=== PATIENT | male | born 1940 | race Caucasian/White ===

== ENCOUNTER 2016-06-27 09:48 | Observation (INO) | payer MEDICARE ==
[2016-06-27 11:07] LABS: RED BLOOD COUNT 5.22 M/UL (4.20-5.50); WHITE BLOOD COUNT 11.2 K/UL (4.5-11.0)
[2016-06-27 11:24] LABS: BUN/CREATININE RATIO 21 (0-10)
[2016-06-27] MEDS ORDERED: INVOKANA100 MG PO (22:55)
[2016-06-27] MEDS ORDERED: JANUVIA100 MG PO (22:56)
[2016-06-27] MEDS ORDERED: PLETAL 100 MG100 MG PO (22:56)
[2016-06-27] MEDS ORDERED: PLAVIX 75 MG TA75 MG PO (22:56)
[2016-06-27] MEDS ORDERED: ESCITALOPRAM OX10 MG PO (22:57)
[2016-06-27] MEDS ORDERED: AMARYL4 MG PO (22:57)
[2016-06-27] MEDS ORDERED: ISOSORBIDE MONO30 MG PO (22:58)
[2016-06-27] MEDS ORDERED: LOVASTATIN40 MG PO (22:59)
[2016-06-27] MEDS ORDERED: LOPRESSOR100 MG PO (22:59)
[2016-06-27] MEDS ORDERED: SEROQUEL TAB 2525 MG PO (23:00)
[2016-06-27] MEDS ORDERED: ASPIRIN EC325 MG PO (23:00)
[2016-06-27] MEDS ORDERED: ALTACE5 MG PO (23:01)
[2016-06-27] MEDS ORDERED: ZANTAC 150 MG150 MG PO (23:01)
[2016-06-28 05:14] LABS: HEMOGLOBIN 14.2 gm/dl (14.0-17.5); RED BLOOD COUNT 4.92 M/UL (4.20-5.50); WHITE BLOOD COUNT 8.6 K/UL (4.5-11.0)
[2016-06-28 05:42] LABS: BUN/CREATININE RATIO 22 (0-10)
[2016-06-28] MEDS ORDERED: AUGMENTIN TAB875 MG PO (16:50)
[2016-06-28] MEDS ORDERED: TAMIFLU 75 MG C75 MG PO (16:50)
== END 2016-06-28 17:30 | disposition home or self-care (01) ==
LOC: ER1 09:48 → ZEROF 14:49 → MED SURG 4 17:33
PROVIDERS: Emergency Medicine; ADMIT Hospitalist
DX: J32.9 Chronic sinusitis, unspecified (principal); J10.1 Influenza due to other identified influenza virus with other respiratory manifestations; E11.9 Type 2 diabetes mellitus without complications; I25.10 Atherosclerotic heart disease of native coronary artery without angina pectoris; I11.9 Hypertensive heart disease without heart failure; I51.9 Heart disease, unspecified; J40 Bronchitis, not specified as acute or chronic; E78.5 Hyperlipidemia, unspecified; Z95.1 Presence of aortocoronary bypass graft; Z79.02 Long term (current) use of antithrombotics/antiplatelets; Z79.82 Long term (current) use of aspirin; Z79.899 Other long term (current) drug therapy; Z82.49 Family history of ischemic heart disease and other diseases of the circulatory system; Z87.09 Personal history of other diseases of the respiratory system; I47.1 Supraventricular tachycardia
CPT/HCPCS: 36415; 36600; 70450; 71010; 80048; 80053; 82550; 82553; 82803; 82962; 83880; 84484; 85025; 87040; 87081; 87880; 93005; 94640; 94664; 96374; 99285; G0378; J0696; J7050

== ENCOUNTER → 2020-07-25 | Outpatient (CLI) | payer MEDICARE ==
[~2020-07-25] MED LIST: ALTACE CAP 5MG5 MG PO; ALTACE10 MG PO; ALTACE5 MG PO; ALTOPREV40 MG PO; AMARYL4 MG PO; AMLODIPINE BESYL5 MG PO; ANTIVERT 25MG T25 MG PO; ASPIR 8181 MG PO; ASPIRIN EC325 MG PO; ASPIRIN81 MG PO; AUGMENTIN 875-1 EACH PO; AUGMENTIN TAB875 MG PO; BRILINTA 90 MG90 MG PO; BRILINTA90 MG PO; CYANOCOBAL1000 MCG/1 IM; CYANOCOBAL1000 MCG/1 INJ; DULCOLAX10 MG PR; ESCITALOPRAM OX10 MG PO; FARXIGA5 MG PO; GLUCOPHAGE1000 MG PO; IMDUR ER TAB 3030 MG PO; INVOKANA100 MG PO; ISOSORBIDE MONO30 MG PO; ISOSORBIDE MONO60 MG PO; JANUVIA100 MG PO; LOPRESSOR 25 MG25 MG PO; LOPRESSOR100 MG PO; LOVASTATIN40 MG PO; METFORMIN HCL1000 M1 PO; METOPROLOL TART25 MG PO; MIRALAX17 GM PO; NITROSTAT 0.40.4 MG SL; NITROSTAT0.4 MG SL; PAIN RELIEF650 MG PO; PLAVIX 75 MG TA75 MG PO; PLETAL 100 MG100 MG PO; RANITIDINE HCL150 MG PO; SEROQUEL TAB 2525 MG PO; TAMIFLU 75 MG C75 MG PO; TYLENOL 500 MG500 MG PO; ZANTAC 150 MG150 MG PO; [UNRECOGNIZED DRUG - SUPPLY] MC
== END ==
LOC: HEART 5 09:59
DX: I20.9 Angina pectoris, unspecified (principal); I07.1 Rheumatic tricuspid insufficiency
CPT/HCPCS: 93306

== ENCOUNTER → 2020-09-18 | Outpatient (CLI) | payer MEDICARE | LOC: HEART 5 07:45 | DX: I20.9 Angina pectoris, unspecified (principal) | CPT/HCPCS: 78452; A9502; J2785 ==

== ENCOUNTER 2020-12-31 19:00 | Emergency (ER) | payer MEDICARE ==
[2020-12-31 19:49] LABS: HEMOGLOBIN 13.2 gm/dl (14.0-17.5); RED BLOOD COUNT 4.54 M/UL (4.20-5.50); WHITE BLOOD COUNT 10.1 K/UL (4.5-11.0)
[2020-12-31 20:20] LABS: BUN/CREATININE RATIO 25 (0-10)
== END 2021-01-01 15:53 | disposition home or self-care (01) ==
LOC: ER1 19:00
PROVIDERS: Emergency Medicine
DX: R41.81 Age-related cognitive decline (principal); F32.2 Major depressive disorder, single episode, severe without psychotic features; I25.10 Atherosclerotic heart disease of native coronary artery without angina pectoris; Z20.822 Contact with and (suspected) exposure to COVID-19; E11.9 Type 2 diabetes mellitus without complications; I10 Essential (primary) hypertension; Z86.73 Personal history of transient ischemic attack (TIA), and cerebral infarction without residual deficits; Z95.1 Presence of aortocoronary bypass graft
CPT/HCPCS: 70450; 71045; 80053; 81001; 82550; 82553; 82962; 83605; 83735; 83874; 83880; 84100; 84484; 85025; 85610; 85730; 87086; 93005; 97162; 97530; 99285; J7030; U0002

== ENCOUNTER → 2021-02-15 | Outpatient (CLI) | payer MEDICARE ==
[2021-02-15 10:39] LABS: HEMOGLOBIN 12.4 gm/dl (14.0-17.5); RED BLOOD COUNT 4.07 M/UL (4.20-5.50); WHITE BLOOD COUNT 9.6 K/UL (4.5-11.0)
[2021-02-15 11:19] LABS: BUN/CREATININE RATIO 20 (0-10)
== END ==
LOC: LAB 09:54
PROVIDERS: Nurse Practitioner Family
DX: E78.5 Hyperlipidemia, unspecified (principal); I10 Essential (primary) hypertension; E03.9 Hypothyroidism, unspecified; E11.9 Type 2 diabetes mellitus without complications; E58 Dietary calcium deficiency; E55.9 Vitamin D deficiency, unspecified
CPT/HCPCS: 36415; 80053; 80061; 82570; 82607; 83036; 84156; 84439; 84443; 85025

== ENCOUNTER 2021-05-12 21:23 | Inpatient (IN) | payer MEDICARE, OTHER ==
[~2021-05-12] VITALS: Ht 180.3 cm; Wt 65.8 kg
[~2021-05-12 21:23] MED LIST changes: +ISORDIL PO; -ISOSORBIDE MONO60 MG PO
[2021-05-12 22:03] LABS: HEMOGLOBIN 12.8 gm/dl (14.0-17.5); RED BLOOD COUNT 4.44 M/UL (4.20-5.50)
[2021-05-12 22:26] LABS: BUN/CREATININE RATIO 20 (0-10)
[2021-05-13] MEDS ORDERED: NORVASC5 MG PO (11:59)
[2021-05-13] MEDS ORDERED: ATORVASTATIN CA40 MG PO (12:00)
[2021-05-13] MEDS ORDERED: RAMIPRIL10 MG PO (12:00)
[2021-05-13] MEDS ORDERED: BRILINTA90 MG PO (17:48)
[2021-05-14 07:13] LABS: HEMOGLOBIN 12.8 gm/dl (14.0-17.5); RED BLOOD COUNT 4.42 M/UL (4.20-5.50); WHITE BLOOD COUNT 11.6 K/UL (4.5-11.0)
[2021-05-14 07:32] LABS: BUN/CREATININE RATIO 30 (0-10)
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
== END 2021-05-14 18:00 | disposition home health service (06) | DRG 68 ==
LOC: ER1 21:23 → 3 EAST 05-13 08:24 → CDU 05-13 08:24 → 3 EAST 05-14 00:20
PROVIDERS: Physician Assistant; Student in an Organized Health Care Education/Training Program; ADMIT Internal Medicine
PROC: B24BZZZ Ultrasonography of Heart with Aorta (ICD-10-PCS; principal; 2021-05-13)
DX: I65.03 Occlusion and stenosis of bilateral vertebral arteries (principal); G45.9 Transient cerebral ischemic attack, unspecified; Z20.822 Contact with and (suspected) exposure to COVID-19; I25.10 Atherosclerotic heart disease of native coronary artery without angina pectoris; I10 Essential (primary) hypertension; D64.9 Anemia, unspecified; E11.9 Type 2 diabetes mellitus without complications; W01.0XXA Fall on same level from slipping, tripping and stumbling without subsequent striking against object, initial encounter; R27.0 Ataxia, unspecified; Z95.1 Presence of aortocoronary bypass graft; Z90.89 Acquired absence of other organs; Z87.891 Personal history of nicotine dependence; Z90.2 Acquired absence of lung [part of]; Z82.49 Family history of ischemic heart disease and other diseases of the circulatory system; Z86.73 Personal history of transient ischemic attack (TIA), and cerebral infarction without residual deficits; Z79.84 Long term (current) use of oral hypoglycemic drugs; Z79.82 Long term (current) use of aspirin; Z79.899 Other long term (current) drug therapy
CPT/HCPCS: 70450; 70496; 70498; 70551; 71045; 80048; 80053; 82550; 82553; 82962; 84484; 85025; 92610; 93005; 96372; 97110-GP-CQ; 97116-GP-CQ; 97162; 97166; 97530; 99285; G0378; J7030; Q9967; U0002

== ENCOUNTER 2021-09-28 11:48 | Inpatient (IN) | payer MEDICARE, MEDICAID ==
[~2021-09-28] VITALS: Ht 180.3 cm; Wt 65.9 kg
[~2021-09-28 11:48] MED LIST changes: +ATORVASTATIN CA40 MG PO; -METFORMIN HCL1000 M1 PO; +METFORMIN HCL500 MG PO; +NORVASC5 MG PO; +RAMIPRIL10 MG PO
[2021-09-28 13:20] LABS: HEMOGLOBIN 12.7 gm/dl (14.0-17.5); RED BLOOD COUNT 4.23 M/UL (4.20-5.50); WHITE BLOOD COUNT 9.7 K/UL (4.5-11.0)
[2021-09-28 13:52] LABS: BUN/CREATININE RATIO 29 (0-10)
[2021-09-28] MEDS ORDERED: LOVASTATIN40 MG PO (18:54)
[2021-09-28] MEDS ORDERED: CLOPIDOGREL75 MG PO (18:54)
[2021-09-28] MEDS ORDERED: AMITRIPTYLINE H10 MG PO (18:55)
[2021-09-28] MEDS ORDERED: OZEMPIC0.25 MG/0. SQ (18:55)
[2021-09-28] MEDS ORDERED: TYLENOL 8 HOUR650 MG PO (18:56)
[2021-09-28] MEDS ORDERED: BUTALB-ACETAMI1 EACH PO (18:56)
[2021-09-28] MEDS ORDERED: RANEXA1000 MG PO (18:58)
[2021-09-29 06:28] LABS: HEMOGLOBIN 12.1 gm/dl (14.0-17.5); RED BLOOD COUNT 4.06 M/UL (4.20-5.50); WHITE BLOOD COUNT 7.8 K/UL (4.5-11.0)
[2021-09-29 06:56] LABS: BUN/CREATININE RATIO 23 (0-10)
[2021-09-29 18:43] LABS: HEMOGLOBIN 11.4 gm/dl (14.0-17.5); RED BLOOD COUNT 3.76 M/UL (4.20-5.50)
[2021-09-29 19:14] LABS: BUN/CREATININE RATIO 23 (0-10)
[2021-09-30 08:05] LABS: HEMOGLOBIN 12.3 gm/dl (14.0-17.5); RED BLOOD COUNT 4.09 M/UL (4.20-5.50); WHITE BLOOD COUNT 9.3 K/UL (4.5-11.0)
[2021-09-30 08:39] LABS: BUN/CREATININE RATIO 32 (0-10)
[2021-10-01 06:26] LABS: HEMOGLOBIN 11.5 gm/dl (14.0-17.5); RED BLOOD COUNT 3.82 M/UL (4.20-5.50); WHITE BLOOD COUNT 9.8 K/UL (4.5-11.0)
[2021-10-01 06:51] LABS: BUN/CREATININE RATIO 30 (0-10)
[2021-10-02 07:18] LABS: HEMOGLOBIN 11.4 gm/dl (14.0-17.5); RED BLOOD COUNT 3.82 M/UL (4.20-5.50); WHITE BLOOD COUNT 8.5 K/UL (4.5-11.0)
[2021-10-02 07:31] LABS: BUN/CREATININE RATIO 26 (0-10)
[2021-10-04 07:06] LABS: HEMOGLOBIN 11.5 gm/dl (14.0-17.5); RED BLOOD COUNT 3.84 M/UL (4.20-5.50)
[2021-10-04 07:11] LABS: WHITE BLOOD COUNT 13.1 K/UL (4.5-11.0)
[2021-10-04 07:36] LABS: BUN/CREATININE RATIO 37 (0-10)
[2021-10-06 02:23] LABS: HEMOGLOBIN 11.1 gm/dl (14.0-17.5); RED BLOOD COUNT 3.77 M/UL (4.20-5.50); WHITE BLOOD COUNT 11.7 K/UL (4.5-11.0)
[2021-10-06 02:52] LABS: BUN/CREATININE RATIO 58 (0-10)
[2021-10-07 02:31] LABS: HEMOGLOBIN 11.4 gm/dl (14.0-17.5); RED BLOOD COUNT 3.78 M/UL (4.20-5.50); WHITE BLOOD COUNT 10.6 K/UL (4.5-11.0)
[2021-10-07 02:56] LABS: BUN/CREATININE RATIO 73 (0-10)
--- NOTE | 2021-10-08 02:29 | NUR ---
APPROX 2150 ATTEMPTED TO ADMINSTER PATIENT PO MEDICATIONS IN THICKENED LIQUIDS PT REFUSED MULTIPLE TIMES. ATTEMPTED MULTIPLE TIMES, ATTEMPTED TO REDIRECT PT WITH NO SUCCESS. ANOTHER STAFF MEMEBER ALSO ATTEMPTED PT REFUSED WELL.
[2021-10-08 06:51] LABS: HEMOGLOBIN 11.6 gm/dl (14.0-17.5); RED BLOOD COUNT 3.97 M/UL (4.20-5.50); WHITE BLOOD COUNT 9.8 K/UL (4.5-11.0)
[2021-10-08 07:19] LABS: BUN/CREATININE RATIO 55 (0-10)
[2021-10-09 06:46] LABS: HEMOGLOBIN 11.6 gm/dl (14.0-17.5); RED BLOOD COUNT 3.87 M/UL (4.20-5.50); WHITE BLOOD COUNT 8.9 K/UL (4.5-11.0)
[2021-10-09 07:00] LABS: BUN/CREATININE RATIO 46 (0-10)
[2021-10-10 07:08] LABS: BUN/CREATININE RATIO 44 (0-10)
[2021-10-13 06:53] LABS: HEMOGLOBIN 10.5 gm/dl (14.0-17.5); RED BLOOD COUNT 3.57 M/UL (4.20-5.50); WHITE BLOOD COUNT 7.4 K/UL (4.5-11.0)
[2021-10-13 14:01] LABS: BUN/CREATININE RATIO 21 (0-10)
[2021-10-14] MEDS ORDERED: POLYETHYLENE GL17 GM PO (09:52)
[2021-10-14] MEDS ORDERED: LISINOPRIL20 MG PO (09:52)
[2021-10-14] MEDS ORDERED: METHYLPHENIDATE10 M1 PO (09:52)
[2021-10-14] MEDS ORDERED: DOCUSATE SODIU100 MG PO (09:52)
[2021-10-14] MEDS ORDERED: ENOXAPARIN40 MG/0.4 SC (09:52)
[2021-10-14] MEDS ORDERED: CARVEDILOL25 MG PO (09:52)
== END 2021-10-14 15:42 | DRG 480 ==
LOC: ER1 11:48 → MED SURG 4 18:12 → CDU 18:12 → MED SURG 4 19:25
PROVIDERS: Internal Medicine; Internal Medicine Infectious Disease; Orthopaedic Surgery; Physician Assistant; ADMIT Internal Medicine
PROC: 0QS706Z Reposition Left Upper Femur with Intramedullary Internal Fixation Device, Open Approach (ICD-10-PCS; principal; 2021-09-29 17:37)
DX: S72.092A Other fracture of head and neck of left femur, initial encounter for closed fracture (principal); G93.41 Metabolic encephalopathy; N39.0 Urinary tract infection, site not specified; E87.0 Hyperosmolality and hypernatremia; I10 Essential (primary) hypertension; E11.9 Type 2 diabetes mellitus without complications; D64.9 Anemia, unspecified; Z20.822 Contact with and (suspected) exposure to COVID-19; W01.0XXA Fall on same level from slipping, tripping and stumbling without subsequent striking against object, initial encounter; I65.03 Occlusion and stenosis of bilateral vertebral arteries; Z66 Do not resuscitate; I25.10 Atherosclerotic heart disease of native coronary artery without angina pectoris; R00.0 Tachycardia, unspecified; R40.0 Somnolence; B96.1 Klebsiella pneumoniae [K. pneumoniae] as the cause of diseases classified elsewhere; E87.6 Hypokalemia; Z82.49 Family history of ischemic heart disease and other diseases of the circulatory system; Z86.73 Personal history of transient ischemic attack (TIA), and cerebral infarction without residual deficits; Z95.1 Presence of aortocoronary bypass graft; Z90.2 Acquired absence of lung [part of]; Z87.891 Personal history of nicotine dependence; Z79.82 Long term (current) use of aspirin; Z79.84 Long term (current) use of oral hypoglycemic drugs
CPT/HCPCS: 36415; 70450; 72125; 72170; 73502; 73700; 73718; 76000; 80048; 80053; 81001; 82140; 82550; 82553; 82962; 83036; 84132; 84484; 85025; 85027; 87077; 87086; 87186; 92526; 92610; 93005; 96374; 96375; 96376; 97110; 97110-GP-CQ; 97162; 97166; 97530; 97530-GP-CQ; 99285; C1713; J0690; J0696; J1100; J1650; J2001; J2250; J2270; J2405; J2795; J3010; J3480; U0002

== ENCOUNTER 2021-12-13 19:30 | Emergency (ER) | payer MEDICARE ==
[~2021-12-13 19:30] MED LIST changes: +AMITRIPTYLINE H10 MG PO; +BUTALB-ACETAMI1 EACH PO; +CARVEDILOL25 MG PO; +CLOPIDOGREL75 MG PO; +DOCUSATE SODIU100 MG PO; +ENOXAPARIN40 MG/0.4 SC; +LISINOPRIL20 MG PO; +METHYLPHENIDATE10 M1 PO; +OZEMPIC0.25 MG/0. SQ; +POLYETHYLENE GL17 GM PO; +RANEXA1000 MG PO; +TYLENOL 8 HOUR650 MG PO
[2021-12-13 22:01] LABS: HEMOGLOBIN 12.7 gm/dl (14.0-17.5); RED BLOOD COUNT 4.2 M/UL (4.20-5.50); WHITE BLOOD COUNT 13.4 K/UL (4.5-11.0)
[2021-12-13 22:21] LABS: BUN/CREATININE RATIO 23 (0-10)
[2021-12-14] MEDS ORDERED: BACTRIM DS TAB1 EACH PO (01:10)
[2021-12-14] MEDS ORDERED: ENULOSE10 GM/15 M PO (01:10)
== END 2021-12-14 02:00 | disposition home or self-care (01) ==
LOC: ER1 19:30
PROVIDERS: Nurse Practitioner
DX: K59.00 Constipation, unspecified (principal); N39.0 Urinary tract infection, site not specified; I25.2 Old myocardial infarction; E11.9 Type 2 diabetes mellitus without complications; I10 Essential (primary) hypertension; F17.220 Nicotine dependence, chewing tobacco, uncomplicated
CPT/HCPCS: 80053; 81001; 83605; 83690; 85025; 99284